=== PATIENT | female | born 1950 | race Caucasian/White ===

== ENCOUNTER → 2017-02-12 07:57 | Outpatient (CLI) | payer BC ==
[2012-07-18 10:49] VITALS: BMI 29.1
[2017-02-12 08:46] LABS: BASOPHILS 0.5 % (0-2); EOSINOPHILS 2.4 % (0-7); HEMATOCRIT 47.6 % (36.0-48.0); HEMOGLOBIN 15.1 g/dL (12-16); IMMATURE GRANULOCYTES 0.2 % (0-5); LYMPHOCYTES 26.4 % (15-50); MCH 28.3 pg (26.0-34.0); MCHC 31.7 g/dL (31.0-37.0); MCV 89.1 fL (80.0-100.0); MONOCYTES 10.7 % (2-11); NEUTROPHILS 59.8 % (40-80); RBC 5.34 10x6/uL (4.00-5.40); RDW 17.1 % (11.5-14.5); WBC 8.6 10x3/uL (4.8-10.8)
[2017-02-12 08:47] LABS: PLATELET COUNT 204 10x3/uL (130-400)
[2017-02-12 09:11] LABS: ALBUMIN 3.7 g/dL (3.4-5.0); ALKALINE PHOSPHATASE 62 U/L (46-116); ALT (SGPT) 27 U/L (10-68); CALC OSMOLALITY 282 mosm/kg (275-300); CALCIUM 9.2 mg/dL (8.5-10.1); CARBON DIOXIDE 28.9 mmol/L (21.0-32.0); CHLORIDE - SERUM 106 mmol/L (98-107); CHOL - HDL RATIO 3.2 ratio (2.3-4.1); CHOLESTEROL, TOTAL 133 mg/dL (0-200); CREATININE - SERUM 0.8 mg/dL (0.6-1.3); GLUCOSE 89 mg/dL (74-106); HDL CHOLESTEROL 41 mg/dL (32-96); LDL CHOLESTEROL 74 mg/dL (0-100); LDL-HDL RATIO 1.8 ratio (1.5-3.5); PROTEIN - SERUM 7.2 g/dL (6.4-8.2); SODIUM 142 mmol/L (136-145); THYROID STIMULATING HORMONE 1.27 uIU/mL (0.36-3.74); TRIGLYCERIDE 93 mg/dL (30-200); UREA NITROGEN 14 mg/dL (7-18); eGFR NON AFRICAN AMERICAN 76 mL/min (90-120)
== END | disposition home or self-care (01) ==
LOC: D.LAB 07:57
PROVIDERS: Family Medicine
DX: Z00.01 Encounter for general adult medical examination with abnormal findings (principal); I10 Essential (primary) hypertension; M89.9 Disorder of bone, unspecified; R01.1 Cardiac murmur, unspecified; N95.1 Menopausal and female climacteric states

== ENCOUNTER → 2017-04-26 08:33 | Outpatient (CLI) | payer BC ==
[2012-07-18 10:49] VITALS: BMI 29.1
== END | disposition home or self-care (01) ==
LOC: D.RAD 04-22 09:00
DX: M16.11 Unilateral primary osteoarthritis, right hip (principal)

== ENCOUNTER → 2019-08-14 10:00 | Outpatient (CLI) | payer MEDICARE ==
[2012-07-18 10:49] VITALS: BMI 29.1
== END | disposition home or self-care (01) ==
LOC: D.HCCARDIO 10:00
PROVIDERS: ATTEND Internal Medicine Cardiovascular Disease
DX: I25.10 Atherosclerotic heart disease of native coronary artery without angina pectoris (principal)

== ENCOUNTER → 2019-08-18 10:59 | Outpatient (CLI) | payer MEDICARE ==
[2012-07-18 10:49] VITALS: BMI 29.1
== END | disposition home or self-care (01) ==
LOC: D.HCCECHO 10:59
PROVIDERS: ATTEND Internal Medicine Cardiovascular Disease
DX: I34.0 Nonrheumatic mitral (valve) insufficiency (principal)

== ENCOUNTER 2019-09-07 06:20 | Outpatient (CLI) | payer MEDICARE ==
[~2019-09-07] VITALS: Ht 170.2 cm; Wt 90.9 kg
--- NOTE | ~2019-09-07 | HEMODYNAMI ---
PATIENT:AMIRAH LUO MEDICAL RECORD: [id number] : 54 LOCATION:[facility] ADMISSION DATE: 09/07/19 Generatedon:09/07/20199:23 Patient name: AMIRAH LUO Patient #: [id number] SSN: [id number] : 1950 Date of study: 09/07/2019 Page: Of Hemodynamic Procedure Report Patient Data Patient Demographics Procedure consent was obtained First Name: AMIRAH Gender: Female Last Name: VALERIO : 1950 Middle Initial: ALYSON Age: 69 year(s) Patient #: [id number] Race: SSN: [id number] Additional ID: [id number] Contact details [address]: [address] [place] [address] ROAD State: [place] City: [place] Zip code: [address] Past Medical History Allergies Allergen Reaction Date Comments Reported Other allergy 09/07/2019 [place] Admission Admission Data Admission Date: 09/07/2019 Admission Time: 6:20 Arrival Date: 09/07/2019 Arrival Time: 8:30 Admit Source: Other Insurance Payor: Medicare [facility] #: [id number] Lab Results Lab Result Date: 09/07/2019 Lab Result Time: 0:00 Biochemistry Name Units Result Min Max BUN mg/dl 16 --(---*)-- 7 18 Creatinine mg/dl 0.9 --(-*--)-- 0.6 1.3 eGFR ml/min 66 *-(----)-- 90 120 NONAFRICAN CBC Name Units Result Min Max Hemoglobin g/dl 14 --(*---)-- 13.5 17.5 Procedure Procedure Types Cath Procedure Diagnostic Procedure LHC LH w/Coronaries w/Grafts Sedation Charges Moderate Sedation up to 15 minutes Peripheral Cath Diagnostic Procedure Abd/Extremity Aortagram Procedure Description Procedure Date Procedure Date: 09/07/2019 Procedure Start Time: 8:44 Procedure End Time: 9:23 Procedure Staff Name Function Chidi Carroll MD Performing Physician Jia Hardy RT Monitor Pita Macario RT Scrub Ruby Finch RN Nurse Procedure Data Cath Procedure Fluoroscopy Diagnostic fluoroscopy Total fluoroscopy Time: 7.5 time: 7.5 min min Diagnostic fluoroscopy Total fluoroscopy dose: dose: 1271 mGy 1271 mGy Contrast Material Contrast Material Type Amount (ml) Isovue 300 126 Entry Location Entry Primary Successful Side Size Upsize Upsize Entry Closure Succes sful Closure Location (Fr) 1 (Fr) 2 (Fr) Remarks Device Remarks Femoral Right 5 Fr Exoseal artery Estimated blood loss: 10 ml Diagnostic catheters Device Type Used For End Catheter Placement MULTIPACK JL 4.0 5Fr Procedure catheter MULTIPACK 3DRC 5Fr Procedure catheter DIAGNOSTIC IMT 5Fr Procedure Catheter ([id number]) DIAGNOSTIC AR MOD 5Fr Procedure Catheter ([id number]) MULTIPACK Pigtail 5 Fr Ventriculography catheter Procedure Complications No complications Procedure Medications Medication Administration Route Dosage 0.9% NaCl I.V. 100 ml/hr Oxygen etCO2 Nasal cannula 2 l/min Lidocaine 2% added to field 20 Heparin Flush Bag added to field 2 bags (1000units/500ml NS) Versed I.V. 2 mg Fentanyl I.V. 50 mcg Versed I.V. 2 mg Fentanyl I.V. 50 mcg Hemodynamics Rest HGB: 14 (g/dl) Heart Rate: 57 (bpm) Pressure Samples Time Site Value (mmHg) Purpose Heart Use Rate(bpm) 9:08 LV 100/28,24 Snapshot 86 Gradients Valve Time Site Site Mean SEP/DFP Peak To Heart Use 1 2 (mmHg) (sec/min) Peak Rate (mmHg) (bpm) Aortic 9:09 LV AO 87 Snapshots Pre Cath Intra NCS Post Cath Vital Signs Time Heart Resp SPO2 etCO2 NIBP (mmHg) Rhythm Pain Sedation Rate (ipm) (%) (mmHg) Status Level (bpm) 8:19:30 81 23 98 37.7 148/79(119) NSR 0 (11) 10(A) , No pain 8:23:32 62 16 98 17.3 107/96(103) NSR 0 (11) 10(A) , No pain 8:27:34 84 12 100 19.6 108/71(86) NSR 0 (11) 10(A) , No pain 8:31:37 79 12 99 33.9 119/76(107) NSR 0 (11) 10(A) , No pain 8:36:20 78 19 98 35.4 122/90(101) NSR 0 (11) 10(A) , No pain 8:40:26 72 12 99 36.2 119/82(113) NSR 0 (11) 10(A) , No pain 8:44:38 82 11 98 33.1 93/59(77) NSR 0 (11) 10(A) , No pain 8:48:38 84 14 96 39.2 93/67(81) NSR 0 (11) 9(A) , No pain 8:52:39 86 13 97 40.7 105/62(100) NSR 0 (11) 9(A) , No pain 8:56:37 84 22 99 38.5 124/88(107) NSR 0 (11) 9(A) , No pain 9:00:45 88 21 98 34.6 119/78(110) NSR 0 (11) 9(A) , No pain 9:04:46 84 25 99 35.4 135/92(125) NSR 0 (11) 9(A) , No pain 9:09:45 88 23 100 34.6 Measuring NSR 0 (11) 9(A) , No pain 9:09:51 77 23 100 36.9 144/95(135) NSR 0 (11) 9(A) , No pain 9:13:57 93 24 100 36.9 138/93(126) NSR 0 (11) 9(A) , No pain 9:18:05 91 23 99 33.2 142/97(118) NSR 0 (11) 10(A) , No pain 9:22:15 85 15 100 32.4 157/96(138) NSR 0 (11) 10(A) , No pain Medications Time Medication Route Dose Verified Delivered Reason Notes Effec tiveness by by 8:18:39 0.9% NaCl I.V. 100 Chidi Ruby used for ml/hr Glen Finch floriculture teacher 8:18:45 Oxygen etCO2 2 Chidi Ruby used for Nasal l/min [place] Finch procedure cannula RN 8:18:51 Lidocaine 2% added 20ml Chidi Chidi to vial Glen Carroll MD field 8:18:55 Heparin Flush added 2 Chidi Chidi used for Bag to bags Glen Carroll MD procedure (1000units/500ml field NS) 8:32:54 Versed I.V. 2 mg Chidi Ruby for [place]ch sedation RN 8:32:59 Fentanyl I.V. 50 Chidi Ruby for mcg [place]ch sedation RN 8:40:33 Versed I.V. 2 mg Chidi Ruby for [place] Finch sedation RN 8:40:38 Fentanyl I.V. 50 Chidi Ruby for mcg [place] Finch sedation micropaleontologist Log Time Note 18:40:47 Pt rhythm SR w/ frequent PVCs. 7:51:03 Diagnostic Cath Status : Elective 7:51:59 Informed consent obtained and on chart 7:54:47 Admit Source: Other 7:54:49 Arrival Date: 09/07/2019 8:30:00 AM 7:55:04 Insurance Payor : Medicare 8:08:32 Lab Result : eGFR NONAFRICAN 66 ml/min 8:08:32 Lab Result : Creatinine 0.9 mg/dl 8:08:32 Lab Result : BUN 16 mg/dl 8:08:32 Lab Result : Hemoglobin 14 g/dl 8:11:00 Pita Macario RT(R) sent for patient. Start room use. 8:11:01 Time tracking: Regular hours (M-F 7:00 - 5:00) 8:11:06 Plan of Care:Hemodynamics will remain stable., Cardiac rhythm will remain stable., Comfort level will be maintained., Respiratory function will remain adequate., Patient/ family verbilizes understanding of procedure., Procedure tolerated without complication., Recovers from procedure without complications.. 8:11:42 Risk of Mortality: <0.1 8:11:46 Risk of blood transfusion: 0.5 8:11:49 Risk of MINH: 0.6 8:12:00 2) 60-89 Mildly reduced kidney function, and other findings (as for stage 1) point to kidney disease. 8:12:07 Maximum allowable contrast dose (3.7 X eGFR X 0.75)148 ml. 8:12:15 Patient received from Pre/Post Procedure Room to [facility] 2 Alert and oriented. Tansferred to table in Supine position. 8:12:16 Warm blankets applied, and luke hugger turned on for patient comfort. 8:12:16 Correct patient and procedure confirmed by team. 8:12:17 ECG and BP/O2 sat monitors applied to patient. 8:18:27 Vital chart was started 8:18:34 Baseline sample Acquired. 8:18:39 0.9% NaCl 100 ml/hr I.V. was administered by Ruby Finch RN; used for procedure; Verbal order read back and verified. 8:18:45 Oxygen 2 l/min etCO2 Nasal cannula was administered by Ruby Finch RN; used for procedure; Verbal order read back and verified. 8:18:47 Full Disclosure recording started 8:18:51 Lidocaine 2% 20ml vial added to field was administered by Chidi Carroll MD; ; Verbal order read back and verified. 8:18:55 Heparin Flush Bag (1000units/500ml NS) 2 bags added to field was administered by Chidi Carroll MD; used for procedure; Verbal order read back and verified. 8:19:23 H&P Date Dictated: 08/28/2019 Within 30 days and on chart.. 8:19:25 Pre-procedure instructions explained to patient. 8:19:27 Family in waiting room. 8:19:43 Patient allergic to Other allergynorco 8:20:14 Is patient on blood thinner?No 8:20:17 Patient diabetic? No. 8:20:20 Snore? Yes 8:20:22 Sleep apnea? No 8:20:27 Dentures? No ? 8:20:32 Patient pain scale 0/10 ?. 8:20:40 IV patent on arrival in left forearm with 0.9% NaCl at [facility]. 8:20:45 Lab results completed and on chart. 8:22:38 Alarms reviewed by R. N. 8:22:39 Sharps counted by scrub and verified by R.N. 8:28:38 Quick Combo opened to sterile field. 8:30:14 Physician arrived 8:30:14 --------ALL STOP TIME OUT------ 8:30:15 Final Timeout: patient, procedure, and site verified with staff and physician. All members of the team are in agreement. 8:30:25 Right groin site verified by team. 8:30:30 Fire Safety Assessment: A--An alcohol-based skin anteseptic being used preoperatively., C--Open oxygen or nitrous oxide is being used., D--An ESU, laser, or fiber-optic light is being used. 8:30:48 Physical assessment completed. ASA score P 3 - A patient with severe systemic disease as per Chidi Carroll MD. 8:30:52 Sedation plan: IV Moderate Sedation Medication:Versed, Fentanyl 8:30:56 Use device set Femoral Dx 8:30:58 ACIST Syringe (70603) opened to sterile field. 8:30:58 Bag Decanter (2002S) opened to sterile field. 8:30:58 Medline Cath Pack ([id number]) opened to sterile field. 8:31:02 ACIST Hand Control (96846) opened to sterile field. 8:31:03 ACIST Manifold (48623) opened to sterile field. 8:31:03 DIAGNOSTIC Multipack 5Fr catheter set ([id number]) opened to sterile field. 8:31:05 Tegaderm 4 x 4 (1626W) opened to sterile field. 8:31:06 EXOSEAL 5Fr (EX500) opened to sterile field. 8:31:[address] ([id number]) opened to sterile field. 8:31:08 EMERALD Guide Wire (942-289) opened to sterile field. 8:32:54 Versed 2 mg I.V. was administered by Ruby Finch RN; for sedation; Verbal order read back and verified. 8:32:59 Fentanyl 50 mcg I.V. was administered by Ruby Finch RN; for sedation; Verbal order read back and verified. 8:34:46 Zero performed for pressure channel P1 8:36:08 Baseline sample Acquired. 8:40:33 Versed 2 mg I.V. was administered by Ruby Finch RN; for sedation; Verbal order read back and verified. 8:40:38 Fentanyl 50 mcg I.V. was administered by Ruby Finch RN; for sedation; Verbal order read back and verified. 8:44:15 Procedure started. 8:44:28 Local anesthetic to right femoral artery with Lidocaine 2% by Chidi Carroll MD.INITIAL ACCESS ONLY 8:45:30 A 5 Fr sheath was inserted into the Right Femoral artery 8:48:01 A MULTIPACK JL 4.0 5Fr catheter was advanced over the wire and used for Procedure. 8:48:02 LCA angiography performed. 8:52:00 Catheter removed. 8:52:09 A MULTIPACK 3DRC 5Fr catheter was advanced over the wire and used for Procedure. 8:52:13 RCA angiography performed. 8:52:23 Catheter removed. 8:53:33 A DIAGNOSTIC IMT 5Fr Catheter ([id number]) was advanced over the wire and used for Procedure. 8:54:53 SCHNEIDER to LAD angiography performed. 8:58:36 Catheter removed. 8:59:50 A DIAGNOSTIC AR MOD 5Fr Catheter ([id number]) was advanced over the wire and used for Procedure. 8:59:56 SVG to RCA angiography performed. 9:01:57 SVG to Circ angiography performed. 9:08:12 Catheter removed. 9:08:21 A MULTIPACK Pigtail 5 Fr catheter was advanced over the wire and used for Ventriculography. 9:09:24 EF : 20 % 9:10:09 Abdominal Aortagram was performed. 9:14:18 Sheath removed intact; hemostasis achieved with Exoseal to the Right Femoral artery. 9:14:20 Procedure ended.(Physican Out) 9:14:32 Fluoroscopy time 07.50 minutes. 9:14:36 Fluoroscopy dose: 1271 mGy 9:14:36 Flurop Dose total: 1271 9:14:43 Dose Area Product 88280 mGy/cm. 9:14:53 Contrast amount:Isovue 300 126ml. 9:15:14 Maximum allowable dose exceeded? No. 9:15:17 Sharps counted by scrub and verified by R.N. 9:15:19 Insertion/operative site no bleeding no hematoma. 9:15:23 Post right femoral artery:stable 9:15:26 Post Procedure Pulses reassessed and unchanged 9:15:40 Post-procedure physical assessment completed. ASA score P 3 - A patient with severe systemic disease as per Chidi Carroll MD. 9:15:47 Post procedure rhythm: unchanged. 9:16:06 Estimated blood loss: 10 ml 9:16:30 Post procedure instruction explained to patient.Patient verbalizes understanding. 9:18:42 Procedure type changed to Cath procedure, Diagnostic procedure, LHC, LHC w/Coronaries w/Grafts, Sedation Charges, Moderate Sedation up to 15 minutes, Peripheral Cath Diagnostic Procedure, Abd/Extremity, Aortagram 9:20:43 Procedure and supply charges have been captured, reviewed, submitted and are correct. 9:21:05 Procedure and supply charges have been captured, reviewed, submitted and are correct. 9:22:24 Procedure and supply charges have been captured, reviewed, submitted and are correct. 9:22:44 Procedure Complication : No complications 9:22:46 Vital chart was stopped 9:22:54 [facility] Findings: MVD- MD will discuss options w/ pt 9:22:56 Operative report dictated upon procedure completion. 9:22:58 See physician's report for complete and final results. 9:23:01 Report given to Pre/Post Procedure Room. 9:23:05 Patient transfered to Pre/Post Procedure Room with Stretcher. 9:23:07 Procedure ended. 9:23:07 Full Disclosure recording stopped 9:23:14 End room use (Document Last) Device Usage Item Name Manufacture Quantity Catalog Number Hospital Part Current Minim al Lot# / Charge Number Stock Stock Serial# Code Quick Combo AlienVault Systems 1 [id number] 810148 780115 554012 5 ACIST Acist 1 75742 887133 863825 606091 20 Syringe Medical (91635) Systems Inc Bag Microtek 1 2001S 772036 62132 153351 5 Decanter Medical Inc. (2001S) Medline Medline 1 [id number] 508278 52007 253812 5 Cath Pack ([id number]) ACIST Hand Acist 1 54961 144971 534594 734011 5 Control Medical (25986) Systems Inc ACIST Acist 1 02416 601075 222953 051358 5 Manifold Medical (10932) Systems Inc DIAGNOSTIC Cardinal 1 [id number] 926538 69714 141833 30 Multipack Lite[employer] Technologies 5Fr catheter set (BW9332) Tegaderm 4 3M 1 1626W 290659 582039 956929 5 x 4 (1626W) EXOSEAL 5Fr Cardinal 1 EX500 880576 185289 934459 10 (EX500) Health SHEATH 5FR Terumo 1 HHN790 968387 863407 3[address] (EZZ345) EMERALD Cardinal 1 502-455 087109 217339 242131 5 Guide Wire Health (502455) MULTIPACK Cardinal 1 816137 5 JL 4.0 5Fr Health catheter MULTIPACK Cardinal 1 403491 5 3DRC 5Fr Health catheter DIAGNOSTIC [place] 1 [id number] 082611 407839 30262 5 IMT 5Fr Scientific Catheter ([id number]) DIAGNOSTIC Cardinal 1 [id number] 589011 452998 125538 15 AR MOD 5Fr Health Catheter (219610A) MULTIPACK Cardinal 1 957852 5 Pigtail 5 Health Fr catheter Signature Audit [place] Stage Time Signature Unsigned Intra-Procedure 09/07/2019 Jia Hardy 9:21:05 AM RT(R) Intra-Procedure 09/07/2019 Ruby Finch 9:22:24 AM RN Intra-Procedure 09/07/2019 Chidi Carroll MD 9:23:40 AM Signatures Performing Physician : Signature : Chidi Carroll MD Date : Time : Monitor : Jia Hardy Signature : RT Date : Time : Nurse : Ruby Finch RN Signature : Date : Time : [facility] [address] [place] [address]
[2019-09-07] MEDS ORDERED: COREG 3.1253.125 MG PO (07:06)
[2019-09-07] MEDS ORDERED: LISINOPRIL2.5 MG PO (07:06)
[2019-09-07] MEDS ORDERED: TRIAMTERENE-HC1 EAC3 PO (07:07)
[2019-09-07] MEDS ORDERED: MOBIC7.5 MG PO (07:07)
[2019-09-07] MEDS ORDERED: BENADRYL50 MG PO (07:08)
[2019-09-07] MEDS ORDERED: CRESTOR20 MG PO (07:08)
[2019-09-07 07:29] VITALS: BP 116/79; Ht 170.2 cm; Wt 90.9 kg
[2019-09-07 07:47] LABS: BASOPHILS 0.6 % (0-2); EOSINOPHILS 3.2 % (0-7); HEMATOCRIT 43.2 % (36.0-48.0); IMMATURE GRANULOCYTES 0.2 % (0-5); LYMPHOCYTES 22.8 % (15-50); MCH 27.9 pg (26.0-34.0); MCHC 32.4 g/dL (31.0-37.0); MCV 86.2 fL (80.0-100.0); MEAN PLATELET VOLUME 10.1 fL (7.4-10.4); MONOCYTES 9.6 % (2-11); NEUTROPHILS 63.6 % (40-80); PLATELET COUNT 236 10x3/uL (130-400); RBC 5.01 10x6/uL (4.00-5.40); RDW 15.9 % (11.5-14.5); WBC 10.4 10x3/uL (4.8-10.8)
[2019-09-07 07:55] LABS: ANION GAP 12.7 mmol/L (8-16); CARBON DIOXIDE 29.2 mmol/L (21.0-32.0); CHOL - HDL RATIO 3.9 ratio (2.3-4.1); CREATININE - SERUM 0.9 mg/dL (0.6-1.3); LDL-HDL RATIO 1.3 ratio (1.5-3.5); POTASSIUM - SERUM 3.9 mmol/L (3.5-5.1)
--- NOTE | 2019-09-07 09:30 | NUR ---
PT RECEIVED VIA STRETCHER FROM DECK STEWARD FOR RECOVERY. PT AWAKE BUT DROWSY. PT DENIES PAIN OR DISCOMFORT. PT PLACED ON CARDIAC MONITORS AND O2 AT 2L/NC. HR 90 W PVC'S, BP 160/92, RR 14, SAT 100. R GROIN W 5FR EXOCELE, GROIN SOFT, DRESSING CDI NO S/S HEMATOMA NOTED. PT INSTRUCTED TO KEEP HEAD FLAT AND LEG STRAIGHT, SHE VERBALIZED UNDERSTANDING. DR KRISHNAMURTHY AT TALKING W PT AND FAMILY REGARDING PLAN OF CARE AND PROCEDURE RESULTS. CALL [facility] IN REACH
--- NOTE | 2019-09-07 09:45 | NUR ---
R GROIN SOFT, NO S/S BLEEDING/HEMATOMA. VSS. HR 83 NSR, OCC PVC. BP 123/73.
--- NOTE | 2019-09-07 10:00 | NUR ---
PT RESTING W/O COMPLAINTS. R GROIN SOFT, DRESSING REMAINS CDI NO BLEEDING OR S/S HEMATOMA NOTED. VSS. CALL [facility] IN REACH.
--- NOTE | 2019-09-07 10:35 | NUR ---
DR KRISHNAMURTHY AT BS TALKING W PT REGARDING PLAN OF CARE AND PROCEDURE RESULTS. HOB ELEVATED SLIGHTLY. GROIN SOFT, VSS. OFFERED SANDWICH BUT IS GOING TO WAIT TO EAT WHEN DISCHARGED. CALL [facility] IN REACH, FAMILY REMAINS AT BS.
--- NOTE | 2019-09-07 11:10 | NUR ---
R GROIN SOFT, NO S/S HEMATOMA. VSS. DISCHARGE INSTRUCTIONS REVIEWED W PT, SHE VERBALIZED UNDERSTANDING. IV REMOVED W CATH INTACT, MONITORS AND O2 REMOVED. PT UP TO DRESS FOR DISCHARGE.
--- NOTE | 2019-09-07 11:19 | NUR ---
PT TO BR VIA WC, VOIDING W/O DIFFICULITY. PT THEN DISCHARGED VIA WC TO DAUGHTER WAITING IN PRIVATE VEHICLE. PT HAD ALL BELONGINGS AND DISCHARGE PAPERWORK.
== END 2019-09-07 11:20 | disposition home or self-care (01) ==
LOC: D.CATH 06:20
PROVIDERS: ATTEND Internal Medicine Cardiovascular Disease
DX: I42.9 Cardiomyopathy, unspecified (principal); R94.39 Abnormal result of other cardiovascular function study; I25.10 Atherosclerotic heart disease of native coronary artery without angina pectoris; E78.5 Hyperlipidemia, unspecified; I10 Essential (primary) hypertension; I48.91 Unspecified atrial fibrillation; I49.9 Cardiac arrhythmia, unspecified; R06.09 Other forms of dyspnea